=== PATIENT | male | born 1990 | race Caucasian/White ===

== ENCOUNTER 2017-09-19 17:00 | Emergency (ER) | payer OTHER | END 2017-09-19 18:03 | disposition home or self-care (01) | LOC: M ED 17:00 | DX: J45.909 Unspecified asthma, uncomplicated (principal); J20.9 Acute bronchitis, unspecified; J01.00 Acute maxillary sinusitis, unspecified; Z79.899 Other long term (current) drug therapy | CPT/HCPCS: 99283 ==

== ENCOUNTER → 2019-10-16 | Outpatient (CLI) | payer BC, OTHER ==
[~2019-10-16] MED LIST: CEFD1CAP8 PO; DOXY-350 PO; FLUTISP; IBUP200C25 PO; PERC5TAB12 PO; PRED20TA PO; PROV108A INH; TESS100C PO; VENTAER IN
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
== END ==
LOC: M LAB 12:12
PROVIDERS: ATTEND Physician Assistant
DX: M25.572 Pain in left ankle and joints of left foot (principal)

== ENCOUNTER → 2021-05-04 | Outpatient (REF) | payer BC, OTHER ==
[2021-05-04 11:48] LABS: SEMEN APPEARANCE OPAQUE (OPAQUE); SEMEN VISCOSITY LIQUID (LIQUID); SEMEN pH 8.5 (7.0-8.0); SPERM CONCENTRATION 7.2 M/ml (>=15.0); WBC CONCENTRATION <=1 M/ml (<=1 M/ml)
== END ==
LOC: M LAB REF 11:36
PROVIDERS: ATTEND Obstetrics & Gynecology
DX: N46.9 Male infertility, unspecified (principal)

== ENCOUNTER 2021-06-25 09:08 | Emergency (ER) | payer BC, OTHER, SELFPAY ==
[~2021-06-25] VITALS: Ht 175.3 cm; Wt 100.0 kg
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
[2021-06-25 14:00] VITALS: BP 145/86
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
== END 2021-06-25 14:47 | disposition home or self-care (01) ==
LOC: M ED 09:08
DX: S60.212A Contusion of left wrist, initial encounter (principal); S60.222A Contusion of left hand, initial encounter; V47.5XXA Car driver injured in collision with fixed or stationary object in traffic accident, initial encounter; F17.200 Nicotine dependence, unspecified, uncomplicated

== ENCOUNTER → 2021-07-01 | Outpatient (CLI) | payer OTHER, BC ==
--- NOTE | 2021-07-02 05:18 | REP ---
INDICATION: LT WRIST PAIN. COMPARISON: 06/25/2021 TECHNIQUE: AP, lateral, oblique views of the left hand. FINDINGS: No definite acute fracture or dislocation is appreciated. Old injury at the base of the 4th metacarpal bone noted. The osseous structures appear relatively intact and unchanged as compared with 06/25/2021. Evaluation of the wrist is somewhat limited due to technique. IMPRESSION: No obvious acute fracture or dislocation is appreciated. However, if the patient remains symptomatic CT may be warranted for more definitive evaluation of the wrist and metacarpal bases. <Electronically signed by Terence Akers > 07/02/21 0531
== END ==
LOC: M SOG 11:00
PROVIDERS: ATTEND Orthopaedic Surgery
DX: M25.532 Pain in left wrist (principal)

== ENCOUNTER → 2021-07-15 | Outpatient (CLI) | payer BC, OTHER, SELFPAY ==
[~2021-07-15] MED LIST changes: -CEFD1CAP8 PO; +CEFD300C41 PO
== END ==
LOC: M SOG 10:31
PROVIDERS: ATTEND Orthopaedic Surgery
DX: S63.502A Unspecified sprain of left wrist, initial encounter (principal); X58.XXXA Exposure to other specified factors, initial encounter; Y92.9 Unspecified place or not applicable; Y99.9 Unspecified external cause status

== ENCOUNTER → 2021-08-05 | Outpatient (CLI) | payer OTHER | LOC: M PLAIMG 14:59 | PROVIDERS: ATTEND Orthopaedic Surgery | DX: M25.532 Pain in left wrist (principal) ==

== ENCOUNTER → 2021-08-11 | Outpatient (CLI) | payer OTHER ==
[2021-08-11 13:43] LABS: ALBUMIN 4.2 GM/DL (3.2-5.2); ALT/SGPT 78 U/L (12-78); BILIRUBIN,TOTAL 0.5 MG/DL (0.2-1.0); BLOOD UREA NITROGEN 9 MG/DL (7-18); CALCIUM LEVEL 9.5 MG/DL (8.5-10.1); CARBON DIOXIDE LEVEL 27 MEQ/L (21-32); CHLORIDE LEVEL 106 MEQ/L (98-107); CREATININE FOR GFR 0.98 MG/DL (0.70-1.30); GLOMERULAR FILTRATION RATE > 60.0 (>60); GLUCOSE, FASTING 91 MG/DL (70-100); POTASSIUM SERUM 4.1 MEQ/L (3.5-5.1); RHEUMATOID FACTOR QUANT < 10.0 IU/ML (<15.0); SODIUM LEVEL 138 MEQ/L (136-145); TOTAL PROTEIN 7.6 GM/DL (6.4-8.2)
[2021-08-12 23:07] LABS: ANTINUCLEAR ANTIBODIES DIRECT Negative (Negative); CYCLIC CITRULLINATED PEPTIDE 9 units (0-19); IgG P18 AB Absent (.); IgG P23 AB Absent (.); IgG P28 AB Absent (.); IgG P30 AB Absent (.); IgG P39 AB Absent (.); IgG P41 AB Present (.); IgG P45 AB Absent (.); IgG P66 AB Absent (.); IgG P93 AB Absent (.); IgM P23 AB Absent (.); IgM P39 AB Absent (.); IgM P41 AB Absent (.); LYME IgG WB INTERPRETATION Negative (.); LYME IgM WB INTERPRETATION Negative (.)
== END ==
LOC: M PLALAB 08:59
PROVIDERS: ATTEND Orthopaedic Surgery
DX: M25.532 Pain in left wrist (principal)

== ENCOUNTER → 2021-10-22 | Outpatient (REF) | payer BC ==
[2021-10-22 13:49] LABS: HEMATOCRIT 48.8 % (42.0-52.0); HEMOGLOBIN 17.8 g/dl (13.5-17.5); MEAN CORPUSCULAR HEMOGLOBIN 29.9 pg (27.0-33.0); MEAN CORPUSCULAR HGB CONC 36.5 g/dl (32.0-36.5); PLATELET COUNT, AUTOMATED 382 10^3/uL (150-450); RED BLOOD COUNT 5.95 10^6/uL (4.30-6.10); WHITE BLOOD COUNT 7.7 10^3/uL (4.0-10.0)
[2021-10-22 14:44] LABS: HEMOGLOBIN A1c 5.2 %
[2021-10-22 14:46] LABS: ALBUMIN 4.3 GM/DL (3.2-5.2); ALT/SGPT 74 U/L (12-78); BILIRUBIN,TOTAL 0.6 MG/DL (0.2-1.0); BLOOD UREA NITROGEN 13 MG/DL (7-18); CALCIUM LEVEL 9.5 MG/DL (8.5-10.1); CARBON DIOXIDE LEVEL 25 MEQ/L (21-32); CHLORIDE LEVEL 106 MEQ/L (98-107); CHOLESTEROL LEVEL 192 MG/DL (<200); CHOLESTEROL RISK RATIO 5.052 (<5); CREATININE FOR GFR 0.97 MG/DL (0.70-1.30); FREE T4 0.91 NG/DL (0.76-1.46); GLOMERULAR FILTRATION RATE > 60.0 (>60); GLUCOSE, FASTING 85 MG/DL (70-100); HDL CHOLESTEROL 38 MG/DL (>40); LDL CHOLESTEROL 107 MG/DL (<100); NON-HDL-C 154 MG/DL; POTASSIUM SERUM 4.4 MEQ/L (3.5-5.1); SODIUM LEVEL 137 MEQ/L (136-145); TOTAL PROTEIN 7.5 GM/DL (6.4-8.2); TRIGLYCERIDES LEVEL 233 MG/DL (<150)
== END ==
LOC: M SFHCADAM 10:34
PROVIDERS: ATTEND Family Medicine
DX: R03.0 Elevated blood-pressure reading, without diagnosis of hypertension (principal); F43.23 Adjustment disorder with mixed anxiety and depressed mood; Z83.3 Family history of diabetes mellitus; Z83.49 Family history of other endocrine, nutritional and metabolic diseases

== ENCOUNTER 2023-07-06 23:52 | Inpatient (IN) | payer BC, OTHER ==
[~2023-07-06] VITALS: Ht 172.7 cm; Wt 90.0 kg
[~2023-07-06 23:52] MED LIST changes: +ALBU6.7H6 INH; +CEFD1CAP9 PO; -CEFD300C41 PO; -DOXY-350 PO; +DOXY-444 PO; -PROV108A INH
[2023-07-07] MEDS ORDERED: DIGETAB4 PO (01:08)
[2023-07-07] MEDS ORDERED: VITA100093 PO (01:08)
[2023-07-07] MEDS ORDERED: LISI20TA33 PO (01:08)
[2023-07-07] MEDS ORDERED: PARO20TA4 PO (01:08)
[2023-07-07] MEDS ORDERED: HOME MED LIST COMPLETE! XX SCH (01:10)
[2023-07-07] MEDS ORDERED: LORazepam 1 MG TAB PO ONE (01:10)
[2023-07-07] MEDS ORDERED: MOM 30ML SUSPENSION UDC PO PRN (01:25)
[2023-07-07] MEDS ORDERED: IBUPROFEN 400MG TAB PO PRN (01:25)
[2023-07-07] MEDS ORDERED: ACETAMINOPHEN TAB 650MG DOSE (2X325MG) PO PRN (01:25)
[2023-07-07] MEDS ORDERED: MAALOX 30 ML SUSP *UDC PO PRN (01:25)
[2023-07-07] MEDS ORDERED: diphenhydrAMINE 25MG CAP PO PRN (02:00)
[2023-07-07 04:12] VITALS: BP 141/98; TEMP 98; O2SAT 97
[2023-07-07] MEDS ORDERED: SERTRALINE HCL 50 MG TAB PO SCH (09:00)
[2023-07-07 09:11] LABS: HEMATOCRIT 45.5 % (42.0-52.0); HEMOGLOBIN 16.3 g/dl (13.5-17.5); MEAN CORPUSCULAR HEMOGLOBIN 29.5 pg (27.0-33.0); MEAN CORPUSCULAR HGB CONC 35.8 g/dl (32.0-36.5); MEAN CORPUSCULAR VOLUME 82.3 fl (80.0-96.0); PLATELET COUNT, AUTOMATED 372 10^3/uL (150-450); RED BLOOD COUNT 5.53 10^6/uL (4.30-6.10); WHITE BLOOD COUNT 10.5 10^3/uL (4.0-10.0)
[2023-07-07 09:26] LABS: ALKALINE PHOSPHATASE 45 U/L (46-116); ALT/SGPT 44 U/L (7.0-40); AST/SGOT 16 U/L (<34); BILIRUBIN,TOTAL 0.7 MG/DL (0.3-1.2); BLOOD UREA NITROGEN 9 MG/DL (9-23); CALCIUM LEVEL 10.2 MG/DL (8.5-10.1); CARBON DIOXIDE LEVEL 23 MMOL/L (20-31); CHLORIDE LEVEL 107 MMOL/L (98-107); CREATININE FOR GFR 0.86 MG/DL (0.70-1.30); GLOMERULAR FILTRATION RATE > 60.0 (>60); GLUCOSE, FASTING 97 MG/DL (60-100); POTASSIUM SERUM 4.1 MMOL/L (3.5-5.1); SODIUM LEVEL 141 MMOL/L (136-145); TOTAL PROTEIN 6.8 G/DL (5.7-8.2)
[2023-07-07 09:27] LABS: THYROID STIMULATING HORMONE 1.507 uIU/ML (0.55-4.78)
[2023-07-07] MEDS: VITAMIN D 1,000 INTERNATIONAL UNITS TABLET PO SCH ×2 (10:01→21:58)
[2023-07-07] MEDS: PARoxetine 10MG TABLET PO SCH (10:39)
[2023-07-07 16:33] VITALS: BP 147/85; TEMP 98.1; O2SAT 99
[2023-07-07] MEDS: traZODone 50 MG TAB PO PRN (23:16)
[2023-07-08 06:11] VITALS: BP 113/59; TEMP 97.4; O2SAT 98
[2023-07-08] MEDS: PARoxetine 10MG TABLET PO SCH (09:46)
[2023-07-08] MEDS: VITAMIN D 1,000 INTERNATIONAL UNITS TABLET PO SCH ×2 (09:47→21:13)
[2023-07-08] MEDS: NICOTINE 21MG/24HR 1 EA TRANSDERMAL TD SCH (09:54)
[2023-07-08 16:33] VITALS: BP 131/84; TEMP 98.1; O2SAT 99
[2023-07-08] MEDS: traZODone 50 MG TAB PO PRN (21:13)
[2023-07-09 06:30] VITALS: BP 119/70; TEMP 97.5; O2SAT 97
[2023-07-09] MEDS: PARoxetine 10MG TABLET PO SCH (08:19)
[2023-07-09] MEDS: VITAMIN D 1,000 INTERNATIONAL UNITS TABLET PO SCH ×2 (08:22→21:06)
[2023-07-09] MEDS: NICOTINE 21MG/24HR 1 EA TRANSDERMAL TD SCH (08:22)
[2023-07-09 18:12] VITALS: BP 106/58; TEMP 99.4; O2SAT 100
[2023-07-09] MEDS: traZODone 50 MG TAB PO PRN (21:06)
[2023-07-10 06:27] VITALS: BP 141/67; TEMP 97.8; O2SAT 100
[2023-07-10] MEDS ORDERED: LISI20TA33 PO (08:16)
[2023-07-10] MEDS ORDERED: VITAD1000T PO (08:16)
[2023-07-10] MEDS ORDERED: PARO5TAB PO (08:16)
[2023-07-10] MEDS ORDERED: TRAZ-252 PO (08:17)
[2023-07-10] MEDS: PARoxetine 10MG TABLET PO SCH (08:23)
[2023-07-10] MEDS: VITAMIN D 1,000 INTERNATIONAL UNITS TABLET PO SCH (08:23)
[2023-07-10 08:24] VITALS: BP 146/75
[2023-07-10] MEDS: NICOTINE 21MG/24HR 1 EA TRANSDERMAL TD SCH (08:29)
== END 2023-07-10 10:58 | disposition home or self-care (01) | DRG 754 ==
LOC: M ED 23:52 → M ED INP 07-07 01:21 → M PSY 07-07 02:31
PROVIDERS: ADMIT Psychiatry & Neurology Psychiatry; ATTEND Student in an Organized Health Care Education/Training Program
DX: F43.21 Adjustment disorder with depressed mood (principal); F32.A Depression, unspecified; R45.851 Suicidal ideations; I10 Essential (primary) hypertension; F17.220 Nicotine dependence, chewing tobacco, uncomplicated; G43.909 Migraine, unspecified, not intractable, without status migrainosus; E55.9 Vitamin D deficiency, unspecified; Z79.899 Other long term (current) drug therapy; Z63.0 Problems in relationship with spouse or partner